=== PATIENT | male | born 1945 | race Caucasian/White ===

== ENCOUNTER → 2018-10-25 | Outpatient (CLI) | payer MEDICARE, SELFPAY ==
--- NOTE | 2018-10-25 18:15 | MRI_ITS ---
STUDY: MR PELVIS WITH AND WITHOUT CONTRAST (PROSTATE) REASON FOR EXAM: Male, 73 years old. Increasing PSA TECHNIQUE: Standardized multiparametric prostate MRI with T1, T2, DWI/ADC sequences were obtained in 3 orthogonal planes, and dynamic contrast enhancement sequences. 25 ml of Dotarem contrast material was administered intravenously for the contrast portion of the examination. COMPARISON: None. FINDINGS: The prostate volume measures 27 mm3. The contours of the prostate gland are smooth. There is not mass effect on the bladder base. The transition zone is heterogenous. PI-RADS DWI score 4 - Focal (left posterior mid transition zone) markedly hypointense on ADC (image 20 of series 500) and markedly hyperintense on high b-value DWI (image 14 of series 5); 5 mm on axial T2. PI-RADS T2W score 3 - Heterogeneous signal intensity with obscured margins. Contrast enhancement (-) No early enhancement, or; diffuse enhancement so that margins do not correspond to a finding on T2WI and/or DWI, or; focal enhancement corresponding to a lesion demonstrating features of BPH on T2WI. The peripheral zone is homogenous. PI-RADS DWI score 2 - Indistinct mildy hypointense on ADC. PI-RADS T2W score 2 - Linear, wedge-shaped, or diffuse mild hypointensity, usually with indistinct margin. Contrast enhancement (-) No early enhancement, or; diffuse enhancement so that margins do not correspond to a finding on T2WI and/or DWI, or; focal enhancement corresponding to a lesion demonstrating features of BPH on T2WI. The seminal vesicles demonstrate normal margins and T2 signal pattern. No mass lesion or invasion depicted. The rectoprostatic angles are normal. Urinary bladder is normal without wall thickening. The vascular structures of the are normal. The visualized hollow viscus structures are normal. No bone marrow edema or mass lesion depicted. MRI/Pelvis W/WO Contrast IMPRESSION: 1. PIRADS v2 2015 -- 4 - High (clinically significant cancer is likely) in the mid posterior left transition zone. Electronically Signed: Flash Becker MD at 12:43 EDT , Service support ,
[2018-10-25 20:21] LABS: CREATININE FINGERSTICK 0.8 mg/dL (0.70-1.30); EGFR FINGERSTICK > 60.0000 mL/min (>60)
== END | disposition home or self-care (01) ==
PROVIDERS: Family Provider Family Medicine; PCP Family Medicine; Referring Provider Nurse Practitioner Adult Health; Visit Provider Nurse Practitioner Adult Health
DX: R97.20 Elevated prostate specific antigen [PSA] (principal); R89.7 Abnormal histological findings in specimens from other organs, systems and tissues
CPT/HCPCS: 72197; A9575

== ENCOUNTER → 2018-12-05 16:22 | Outpatient (CLI) | payer MEDICARE, SELFPAY ==
--- NOTE | 2018-12-05 | IMM_PTH ---
PATIENT: MONY KING LOC: [facility] U#:[id number] AGE/SX: 80/M ROOM: RE12/05/[address]: Dr. iWlbert Miller MD : 1945 BED: DIS: SPEC #: [id number] RECD: 12/07/18 11:26 STATUS: DANIELLA REIsaac #: [id number] DYLAN: 12/05/18 00:[address]: Wilbert Miller DEPT: IMMUNOHISTOCHEMISTRY RECD BY: Madeline Matute ENTERED: 12/07/18 11:29 SP TYPE: IMMUNO OTHR DR: Dr. Jean Marie Cantu MD Tissues: B - PROSTATE RIGHT C - PROSTATE RIGHT E - PROSTATE LEFT Procedures: 34BE12 (add) P40 (add) 34BE12 (initial) PHYSICIAN & INSTITUTION [place] [id number] SPECIMEN INFORMATION: Tissue Source: B - Right mid, C - Right base, E - Left mid Clinical Info: Elevated PSA Specimen Number: [id number] B, C, E CPT code: 93452, 00452 x5 METHODOLOGY: Deparaffinized sections of prefer/formalin-fixed tissue or PAP/DQ stained slides are incubated with monoclonal/polyclonal antibodies/oligonucleotide probes. Localization is made via biotin free immunoperoxidase method. Appropriate controls are performed and reacted as expected. Results on target cell population are indicated in the following table: RESULTS: ANTIBODY / CLONE RESULT Block B P40 (BC28) negative 34BE12 (34BE12) negative Block C P40 (BC28) negative 34BE12 (34BE12) negative Block E P40 (BC28) positive 34BE12 (34BE12) positive These tests were developed and their performance characteristics determined by [facility]. They may not have been cleared or approved by the U.S. Food and Drug Administration. The FDA has determined that such clearance or approval is not necessary. INTERPRETATION: B. Right prostate, mid, core biopsy: Adenocarcinoma. C. Right prostate, base, core biopsy: Adenocarcinoma. E. Left prostate, mid, core biopsy: Negative for adenocarcinoma. SJ:doroteo 12/08/18
--- NOTE | 2018-12-05 08:00 | PROSBIL_PTH ---
PATIENT: MONY KING LOC: [facility] U#:[id number] AGE/SX: 80/M ROOM: RE12/05/[address]: Dr. Wilbert Miller MD : 1945 BED: DIS: SPEC #: [id number] RECD: 12/05/18 15:14 STATUS: DANIELLA ANÍBAL #: [id number] DYLAN: 12/05/18 08:[address]: Wilbert Miller DEPT: SURGICAL PATHOLOGY RECD BY: John Camilo ENTERED: 12/06/18 08:42 SP TYPE: PROST BX DIANNA DR: Dr. Jean Marie Cantu MD Tissues: A - PROSTATE RIGHT B - PROSTATE RIGHT C - PROSTATE RIGHT D - PROSTATE LEFT E - PROSTATE LEFT F - PROSTATE LEFT Procedures: PROSTATE BX HEADER OPERATION: Prostate biopsy PRE-OP DIAGNOSIS: Elevated PSA TISSUE SUBMITTED: A - Right apex, B - Right mid, C - Right base, D - Left apex, E - Left mid, F - Left base MICROSCOPIC DIAGNOSIS A. 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 Moderate chronic inflammation, mild acute inflammation and atrophy. B. Right prostate, mid, core biopsy: Prostatic adenocarcinoma: [place] grade: 3+4=7 Number of cores involved: 2/2 Proportion of tissue involved: ~5% Perineural invasion: Not identified. Greatest tumor length: 0.4 cm, discontinuous Moderate to marked chronic inflammation and mild acute inflammation. See comment. C. Right prostate, base, core biopsy: Prostatic adenocarcinoma: [place] grade: 3+4=7 Number of cores involved: 2/2 Proportion of tissue involved: ~60% Perineural invasion: Not identified. Greatest tumor length: 0.5 cm Moderate chronic inflammation and mild acute inflammation. See comment. D. Left prostate, apex, core biopsy: Prostatic tissue, negative for malignancy. Moderate chronic inflammation and mild acute inflammation. E. Left prostate, mid, core biopsy: Prostatic tissue, negative for malignancy. Moderate to marked chronic inflammation and mild acute inflammation. See comment. F. Left prostate, base, core biopsy: Prostatic tissue, negative for malignancy. Moderate acute and chronic inflammation. SJ:doroteo 12/07/18 COMMENT B, C & E - Immunohistochemistry ([id number]) supports the above diagnosis. Case has been reviewed in consultation with Dr. Davison who concurs with the above diagnosis. IDC:AM MICROSCOPIC DESCRIPTION Slides are reviewed. GROSS DESCRIPTION A - Received is one container designated prostate, right apex. The specimen consists of one elongated fragment of light alfonso-white soft tissue measuring 1.2 cm in length and 0.1 cm in diameter. The specimen is totally submitted in one cassette. B - Received is one container designated prostate, right mid. The specimen consists of two elongated fragments of light alfonso-white soft tissue measuring 1 and 1.5 cm in length and 0.1 cm in diameter. The specimen is totally submitted in one cassette. C - Received is one container designated prostate, right base. The specimen consists of two elongated fragments of light alfonso-white soft tissue measuring 1 and 1.2 cm in length and 0.1 cm in diameter. The specimen is totally submitted in one cassette. D - Received is one container designated prostate, left apex. The specimen consists of one elongated fragment of light alfonso-white soft tissue measuring 1.2 cm in length and 0.1 cm in diameter. The specimen is totally submitted in one cassette. E - Received is one container designated prostate, left mid. The specimen consists of two elongated fragments of light alfonso-white soft tissue each measuring 1.5 cm in length and 0.1 cm in diameter. The specimen is totally submitted in one cassette. F - Received is one container designated prostate, left base. The specimen consists of two elongated fragments of light alfonso-white soft tissue measuring 1.4 and 2 cm in length and 0.1 cm in diameter. The specimen is totally submitted in one cassette. / RENATO:doroteo 12/06/18 TC:0 CPT: G0146 ADDENDUM ADDENDUM ADDENDUM ADDENDUM ADDENDUM ADDENDUM ADDENDUM ADDENDUM 01/09/2019 08:10 ADDENDUM 01/09/2019 08:10 ADDENDUM 01/09/2019 08:10 ADDENDUM 01/09/2019 08:10 ADDENDUM 01/09/2019 08:10 An order for Oncotype testing was received from Dr. Wilbert Miller. This necessitated case review, block and slide selection by pathologist at [facility]. Genomic Prostate Score = 59 Results of the complete Oncotype testing ([employer] report) are viewable in EMR under: Reports - Pathology - Lab Pathology Report, Scanned.
== END ==
PROVIDERS: Family Provider Family Medicine; PCP Family Medicine; Referring Provider Urology; Visit Provider Urology
DX: R97.20 Elevated prostate specific antigen [PSA] (principal)
CPT/HCPCS: 88305; 88341; 88342; G0416

== ENCOUNTER 2019-02-08 10:46 | Day surgery (SDC) | payer MEDICARE, SELFPAY ==
[2019-02-08 11:13] VITALS: BP 151/91; PULSE 80; RESP 18; TEMP 36.7; O2SAT 95; BMI 37.0
[2019-02-08] MEDS: Lactated Ringers 1,000 ML 100 ML IV ×2 (11:31→15:05)
[2019-02-08 11:46] LABS: Bedside Glucose 118 mg/dL (70-110)
[2019-02-08] MEDS: Cefazolin 2 GM in 0.9% Normal Saline 100 ML IV (14:08)
--- NOTE | 2019-02-08 14:38 | DCINST_ITS ---
Discharge Diet: Light diet - advance as tolerated Discharge Activity: Return to Normal Activity Allergies/Adverse Reactions: Allergies bupropion [From Wellbutrin] Allergy (Verified 02/08/19 11:12) Chest tightness gabapentin Allergy (Verified 02/08/19 11:12) Nausea Medications to take at Discharge Amlodipine [Norvasc] 5 mg PO DAILY 02/01/19 Aspirin [Aspir 81] 81 mg PO DAILY 02/01/19 Aspirin/Sod Bicarb/Citric Acid [[place] Original Tab Eff] 1 ea PO DAILY 02/01/19 Hydrocodone/Acetaminophen [[place] 10-325 Tablet] 2 ea PO TID 02/01/19 Insulin NPH Hum/Reg Insulin Hm [Novolin 70-30 Flexpen] 40 unit SQ PRN PRN 02/01/19 Lisinopril/Hydrochlorothiazide [Lisinopril-Hctz 20-12.5 mg Tab] 2 ea PO DAILY 02/01/19 Potassium 99 mg PO DAILY 02/01/19 Pravastatin [Pravachol] 20 mg PO DAILY 02/01/19 Pregabalin [Lyrica] 100 mg PO BID 02/01/19 Tamsulosin HCl [Flomax] 0.4 mg PO DAILY 02/01/19 Primary Care Physician: Jean Marie Cantu MD [Primary Care Provider] - Test Results: Test results from this visit will be discussed in further detail at your follow- up appointment, if applicable. Please Follow Up With: Wilbert Miller MD When: follow up for next ADT injection
--- NOTE | 2019-02-08 14:40 | OP.PCM_ITS ---
Report of Operation Date of Procedure: 02/08/19 Pre-Operative Diagnosis: Prostate cancer Post-Operative Diagnosis: Same Surgery/Procedure Performed:: Transperineal placement of gold fiducial markers, transplant peritoneal placement of spacer organ at risk hydrogel, transrectal ultrasound of the prostate Description of Surgical Findings:: 74-year-old male who is elected to undergo radiation therapy for prostate cancer is going have his gold markers placed today and the prostate were also into place hydrogel spacer between the rectum and the prostate is hopefully spare rectal toxicity with the radiation. Risk of the procedure was discussed with the patient including bleeding and infection and pain. Risk of anesthesia. 74-year-old male taken back to the operating room at the smooth induction of general anesthesia he was placed in dorsolithotomy position the testicles penis and perineum were prepped and draped in usual sterile fashion, we then used Ioban to retract the testicles out of the way, and then used a biplanar ultrasound probe and placed into the rectum performed ultrasonography of the prostate and the rectum identified the critical landmarks of the prosthetic fat of the fat above the rectum the prostate capsule seminal vesicles the bladder at the apex and the base of middle of the prostate after ultrasonography was performed and all the landmarks were identified then I used the first log marker advanced through the perineum to the patient's right apex log marker was delivered by the plunger and the needle was pulled out with second the second log marker was delivered to the right base and the third marker was delivered to the left base after 3 gold fiducial markers were placed ultrasonography was performed again to confirm the location of these markers I then prepared the hydrogel in the back table mixing the blue solution and the white solution putting it together for the injection once the hydrogel was prepared according to assistant womens volleyball coach's instruction I marked the level of the needle with the bubble up and then flushed the needle and then used saline to advance the needle into the position below the prostate above the rectum making sure that the needle was in the fat plane above the rectum below the prostate, I injected a puff of normal saline in this location to test it which is look like it nicely and then we injected the hydrogel over the course of 15 seconds and had a nice separation between the rectum and the prostate with injection of the hydrogel. After the procedure pulled out the needle patient anesthetic was reversed taken back to PACU in good condition and he will proceed with radiation therapy and follow-up in my office as planned. Type of Anesthesia:: General Drains: none - Admit VTE Documentation VTE Present on Admission: No VTE Mechan Device Prophylaxis: SCD's
[2019-02-08 14:48] VITALS: BP 142/80; BP 151/91; PULSE 90; RESP 16; TEMP 36.3; O2SAT 94
[2019-02-08 14:55] LABS: Bedside Glucose 128 mg/dL (70-110)
[2019-02-08 15:00] VITALS: BP 151/91; BP 160/87; PULSE 78; RESP 16; O2SAT 82
[2019-02-08 15:15] VITALS: BP 151/91; BP 160/85; PULSE 80; RESP 16; O2SAT 94
[2019-02-08 15:30] VITALS: BP 151/91; BP 164/85; PULSE 78; RESP 16; TEMP 36.3; O2SAT 93
[2019-02-08 15:58] VITALS: BP 151/91
== END 2019-02-08 16:07 | disposition home or self-care (01) ==
LOC: SDC 10:47 → AC 10:48
PROVIDERS: Family Provider Family Medicine; PCP Family Medicine; Referring Provider Urology; Visit Provider Urology
PROC: (CPT 55874; principal; 2019-02-08 13:40)
DX: C61 Malignant neoplasm of prostate (principal); N40.1 Benign prostatic hyperplasia with lower urinary tract symptoms; R35.0 Frequency of micturition; R39.15 Urgency of urination; R35.1 Nocturia; I10 Essential (primary) hypertension; F32.9 Major depressive disorder, single episode, unspecified; M19.90 Unspecified osteoarthritis, unspecified site; E11.42 Type 2 diabetes mellitus with diabetic polyneuropathy; E11.65 Type 2 diabetes mellitus with hyperglycemia; G47.30 Sleep apnea, unspecified; Z87.891 Personal history of nicotine dependence; Z85.828 Personal history of other malignant neoplasm of skin; Z79.4 Long term (current) use of insulin; Z86.73 Personal history of transient ischemic attack (TIA), and cerebral infarction without residual deficits; Z79.82 Long term (current) use of aspirin; Z79.891 Long term (current) use of opiate analgesic; Z79.899 Other long term (current) drug therapy
CPT/HCPCS: 55876; 76942; 82962; J7120; J2405

== ENCOUNTER → 2019-02-20 | Outpatient (CLI) | payer MEDICARE, SELFPAY ==
[2019-02-08 11:13] VITALS: BMI 37.0
[2019-02-20 11:34] LABS: Absolute Lymphocyte Count 2.81 X10^3/uL (0.83-4.51); Eosinophil# 0.43 X10^3/uL; Eosinophils% 4.2 % (0-5); Hematocrit 46.9 % (40-54); Hemoglobin 15.3 g/dL (13.0-16.5); Lymphocyte # 2.81 X10^3/ul (4.0); Lymphocyte % 27.6 % (19-41); Mean Corp Hgb Conc 32.6 g/dL (32-36); Mean Corpuscular Hgb 29.6 pg (27.0-32.0); Mean Corpuscular Volume 90.7 fL (80-94); Mean Platelet Vol. 9.1 fl (6.2-12.0); Monocyte# 0.76 X10^3/uL; Monocyte% 7.5 % (0-10); NRBC Flagged by Analyzer 0 % (0-5); Neutrophil # 6.03 X10^3/uL (2.7-7.7); Neutrophil % 59.2 % (47-70); Platelet Count 268 K/mm3 (150-450); RBC Distribution Width SD 43.3 fl (35.1-43.9); Red Blood Count 5.17 M/mm3 (4.6-6.2); White Blood Count 10.2 K/mm3 (4.4-11.0)
[2019-02-20 12:02] LABS: Creatinine, Serum 1.11 mg/dL (0.70-1.30); EST Glomerular Filtration Rate 69 mL/min (>60); Est Glom Filt Rate - Afr Amer 84 mL/min (>60); PSA,Total- Diagnostic 3.05 ng/mL (0.0-4.0)
== END | disposition home or self-care (01) ==
LOC: LAB 11:06
PROVIDERS: Family Provider Family Medicine; PCP Family Medicine; Referring Provider Radiology Radiation Oncology; Visit Provider Radiology Radiation Oncology
DX: Z01.818 Encounter for other preprocedural examination (principal); C61 Malignant neoplasm of prostate
CPT/HCPCS: 36415; 82565; 84153; 85025

== ENCOUNTER → 2019-02-21 | Outpatient (CLI) | payer MEDICARE, SELFPAY ==
[2019-02-08 11:13] VITALS: BMI 37.0
--- NOTE | 2019-02-21 09:37 | CT_ITS ---
STUDY: CT PELVIS WITH CONTRAST REASON FOR EXAM: Male, 74 years old. Prostate cancer planning RADIATION DOSAGE (If Supplied By Facility): CTDIvol = ( 24.62 ) mGy, DLP = ( 856.47 ) mGycm TECHNIQUE: Transaxial imaging of the pelvis was performed with oral contrast. IV/Oral 100ML ISOVUE 300 100 was administered intravenously. Individualized dose optimization techniques were used for this CT. COMPARISON: None. FINDINGS: Normal urinary bladder. Calcifications within the prostate gland. Catheter or other device within the urethra. Normal visualized small intestine. Normal visualized colon. There is no pelvic fluid. There is no pelvic lymphadenopathy or mass lesion. Normal visualized pelvic arteries. 4 x 5 cm soft tissue mass in the midline of the anterior abdominal wall in the pelvis which may represent scarring but other etiologies cannot be excluded. Clinical correlation is recommended. Normal osseous structures. CT/Abdomen/Pelvis WITH Contrast IMPRESSION: 1. Prostatic calcifications and surgical markers. 2. 4 x 5 cm soft tissue mass in the midline of the anterior abdominal wall possibly related to scarring. Clinical correlation is recommended. 3. Catheter other device within the urethra. Electronically Signed: Alton Salazar MD at 13:48 EDT Tel , Service support ,
== END | disposition home or self-care (01) ==
LOC: CT 09:36
PROVIDERS: Family Provider Family Medicine; PCP Family Medicine; Referring Provider Radiology Radiation Oncology; Visit Provider Radiology Radiation Oncology
DX: C61 Malignant neoplasm of prostate (principal)
CPT/HCPCS: 74177; Q9967